=== PATIENT | female | born 1965 | race African-American/Black ===

== ENCOUNTER 2023-01-27 15:27 | Emergency (ER) | payer BC, SELFPAY ==
--- NOTE | ~2023-01-27 | XR_ITS ---
EXAMINATION: XR CHEST CLINICAL INFORMATION: Cough. COMPARISON: None available. TECHNIQUE: 2 views of the chest were obtained. FINDINGS: No significant abnormality is noted involving the heart, lungs, mediastinum, bony thorax or soft tissues. XR/XR chest 2V IMPRESSION: Unremarkable examination.
--- NOTE | 2023-01-27 15:34 | ECG_ITS ---
Test Reason : BRADYCARDIA Blood Pressure : / mmHG Vent. Rate : 054 BPM Atrial Rate : 054 BPM P-R Int : 182 ms QRS Dur : 078 ms QT Int : 454 ms P-R-T Axes : 069 005 026 degrees QTc Int : 430 ms Sinus bradycardia with sinus arrhythmia Otherwise normal ECG No previous ECGs available Referred By: Kathie Levy Electronically Signed By:JITENDRA MOSES
--- NOTE | 2023-01-27 15:44 | ED.GENADULT ---
HPI - General Adult General Chief complaint: Arrhythmia/Palpitations Stated complaint: low heart rate/dizziness Time Seen by Provider: 01/27/23 22:35 Source: patient Mode of arrival: ambulatory History of Present Illness HPI narrative: 57-year-old female with history of elevated BMI, hypertension who presents with onset of dizziness but denies any shortness of breath and describes some left-sided chest pain but is currently asymptomatic. Related Data Allergies Allergy/AdvReac Type Severity Reaction Status Date / Time ammonium alum Allergy Swelling Verified 01/27/23 15:46 [From [place]] cetylpyridinium chloride Allergy Swelling Verified 01/27/23 15:46 [From [place]] docosanol [From [place]] Allergy Swelling Verified 01/27/23 15:46 eucalyptus [From [place]] Allergy Swelling Verified 01/27/23 15:46 lactic acid [From [place]] Allergy Swelling Verified 01/27/23 15:46 menthol [From [place]] Allergy Swelling Verified 01/27/23 15:46 methyl salicylate Allergy Swelling Verified 01/27/23 15:46 [From [place]] octoxynol 9 [From [place]] Allergy Swelling Verified 01/27/23 15:46 soap [From [place]] Allergy Swelling Verified 01/27/23 15:46 sodium lactate Allergy Swelling Verified 01/27/23 15:46 [From [place]] thymol [From [place]] Allergy Swelling Verified 01/27/23 15:46 Review of Systems Review of Systems: Pertinent positives and negatives as stated in HPI [facility] Past Medical History Source: nursing notes reviewed Social History Social History Advance Directives: No Advance Directives Information Provided: Yes Physical Exam ED Vital Signs: Vital Signs - 24 hr 01/27/23 15:46 01/27/23 20:07 01/27/23 22:46 Temperature 97.9 F 97.9 F Pulse Rate 51 64 67 Respiratory Rate 18 20 18 Blood Pressure 188/95 H 212/88 H 180/65 H Pulse Oximetry 100 98 99 Oxygen Delivery Method Room Air Room Air Room Air 01/27/23 23:44 01/27/23 23:45 01/27/23 23:45 Temperature Pulse Rate 62 63 65 Respiratory Rate Blood Pressure 170/78 H 180/64 H 153/86 H Pulse Oximetry Oxygen Delivery Method 01/28/23 01:08 Temperature Pulse Rate 55 Respiratory Rate 13 Blood Pressure 150/82 H Pulse Oximetry 100 Oxygen Delivery Method Room Air BMI result Body Mass Index 40.9 VITAL SIGNS: Reviewed. GENERAL: Elevated BMI, Well developed, well nourished, in no acute distress. HEAD: Normocephalic/atraumatic EYES: PERRLA, EOMI EARS: Ext canals without abnormality, TMs non-bulging and non-erythematous NOSE: Nares patent bilateral OROPHARYNX: no oral lesions noted, posterior pharynx clear and non-erythematous without noted tonsillar enlargement/erythema/exudates NECK: Supple, no adenopathy LUNGS: Normal breath sounds. No adventitious sounds or accessory muscle use. SpO2<99> CARDIOVASCULAR: Regular rate and rhythm without noted murmurs, no JVD or lower extremity edema. ABDOMEN: Soft, non-tender, non-distended with bowel sounds. MUSCULOSKELETAL: No tenderness, deformities, or effusions noted on gross inspection. EXTREMITIES: No cyanosis, clubbing or edema. SKIN: Inspection of the skin reveals no rashes NEUROLOGIC: Alert and oriented x 4. Strength and sensation to light touch were grossly intact x 4, no facial asymmetry, no pronator drift, no ataxic, cranial nerves 2-12 are grossly intact. Course Course Course Narrative: This is a rapid medical exam: Additional HPI, ROS, PE not included below will be deferred to primary provider. Patient is a 57-year-old female with history of HTN, anxiety, GERD presenting to the emergency department with complaint of dizziness, seeing spots, so she went to urgent care. Heart rate found to be low there. Denies chest pain or shortness of breath. Plan: EKG, labs, UA 20:05 Patient's friend up to triage stating that patient is now having chest pain radiating down left arm. Will repeat EKG and add troponin. Patient hypertensive in triage, states she did take her medications today. Denies headache. Medical Decision Making Medical Decision Making MDM Narrative: 57-year-old female with history and clinical presentation, DDX: Hypovolemia, uncontrolled hypertension, bradycardia is secondary to elevated blood pressure as there are no acute changes on EKG, possibility of PE, patient is otherwise nonfocal and orthostatics are positive from sitting to standing position. Reviewed all investigations and hematologic indices do not demonstrate any leukocytosis or left shift, there is no anemia or thrombocytopenia. Coagulation studies are grossly within normal limits and D-dimer <150. Chemistry indices demonstrate serial high sensitivity troponins as undetectable without acute EKG changes and otherwise there is no MAMTA and no electrolyte or liver enzyme derangements. On re-evaluation, patient is resting comfortably and no further elevated blood pressure noted. Patient is entirely asymptomatic at this time and on ambulation she denies any sensation dizziness, headaches, gait instability. My interpretation is that patient may have experienced these symptoms secondary to elevated blood pressure which also was responsible for her bradycardia. Patient was strongly encouraged to purchase an [id number] blood pressure machine, keep a list of her blood pressures and she states she has a follow-up appointment on 02/14. Differential Diagnosis Differential Diagnoses: The differential diagnosis associated with the presentation includes Please see the discussion above Admission/Observation Consideration of admission/observation: Escalation of care including admission/observation considered Please see the discussion above Lab Data MDM Lab Attestation statement: I reviewed the patient's lab results. Please see the discussion above 01/27/23 15:57 01/27/23 15:57 Labs: Lab Results 01/27/23 01/27/23 Range/Units 15:57 23:23 WBC 10.0 (4.8-10.8) X10*3/uL RBC 4.51 (4.20-5.50) X10*6/uL Hgb 13.2 (12.0-16.0) g/dl Hct 38.6 (37.0-47.0) % MCV 85.6 (80.0-98.0) fL MCH 29.3 (27.0-33.0) pg MCHC 34.2 (31.0-35.0) g/dl RDW 14.6 (11.0-16.0) % Plt Count 304 (160-400) X10*3/uL MPV 9.9 (9.4-12.3) fL Immature Gran % (Auto) Cancelled Neut % (Auto) Cancelled Lymph % (Auto) Cancelled [place] % (Auto) Cancelled Eos % (Auto) Cancelled Baso % (Auto) Cancelled Lymph # (Auto) Cancelled [place] # (Auto) Cancelled Eos # (Auto) Cancelled Baso # (Auto) Cancelled Abs Immat Gran (auto) Cancelled Absolute Neuts (auto) Cancelled Absolute Nucleated RBC 0.000 (0.0-0.012) X10*3/uL Nucleated RBC % (auto) 0.0 (0.0-0.2) /100WBC Neutrophils % (Manual) 34 L (45-73) % Band Neutrophils % 0 L (3-5) % Lymphocytes % (Manual) 48 H (20-40) % Atypical Lymphs % (Man) 14 H (0-6) % Monocytes % (Manual) 1 L (2-11) % Eosinophils % (Manual) 1 (0-4) % Basophils % (Manual) 2 (0-2) % Abs Neuts (Manual) 3.4 (2.0-8.3) X10*3/uL Lymphocytes # (Manual) 4.8 (1.2-4.9) X10*3/uL Atyp Lymphs # (Manual) 1.4 x10*3/uL Monocytes # (Manual) 0.1 (0.1-1.2) X10*3/uL Eosinophils # (Manual) 0.1 (0.0-0.4) X10*3/uL Basophils # (Manual) 0.2 (0.0-0.2) X10*3/uL Toxic Granulation PRESENT Dohle Bodies PRESENT Platelet Estimate NORMAL (NORMAL) Plt Morphology Comment NORMAL RBC Morphology NORMAL PT 11.7 (11.1-13.3) SEC INR 1.0 (0.9-1.1) D-Dimer High Sensitivty < 150 NG/ML Sodium 142 (135-145) mmol/L Potassium 3.1 L (3.3-5.1) mmol/L Chloride 106 (96-108) mmol/L Carbon Dioxide 29 (22-29) mmol/L Anion Gap 10 L (12-20) BUN 11 (9-16) mg/dL Creatinine 1.06 (0.5-1.4) mg/dL Estim Creat Clear Calc 69.4 Estimated GFR 54 Random Glucose 80 (60-115) mg/dL Calcium 9.0 (8.4-10.2) mg/dL Total Bilirubin 0.5 (0.0-1.0) mg/dL AST 15 (5-31) U/L ALT 17 (0-31) U/L Alkaline Phosphatase 96 (39-117) U/L Troponin I High Sens < 2.7 < 2.7 (<3.5-17.0) ng/L Total Protein 7.3 (6.5-8.0) g/dL Albumin 3.8 (3.5-5.0) g/dL Independent Interpretation I performed an independent interpretation of an: EKG Interpretation: 1542: Sinus bradycardia, HR -54, no STEMI, MA/QRS/QTC is within normal limits 2012: Sinus bradycardia, HR -56, no STEMI, MA/QRS/QTC is within normal limits Radiology Impression Discussion of test interpretation with radiology: I have reviewed the radiologist's reading. Radiologist Impression: Please see the discussion above External Record Review External record reviewed: Outpatient record and Prior outpatient labs Critical Care Time Critical Care Time Critical Care Time: Yes Total Critical Care Time: 30 Attestation: I personally attest to this time spent taking care of the patient. Discharge Plan Discharge Clinical Impression: Dizziness, Elevated blood pressure reading Patient Disposition: Home, Self-Care Instructions: Lightheadedness (ED) Additional Instructions: 1. Keep your appointment with your primary care doctor. 2. Recommend [id number] blood pressure cuff to keep track of your blood pressures and discussed with your primary care doctor. Return to the ER for any worsening symptoms. Stand Alone Forms: Work/School Release
[2023-01-27 15:46] VITALS: BP 188/95; PULSE 51; RESP 18; TEMP 36.6; O2SAT 100; BMI 40.9
[2023-01-27 16:22] LABS: Hematocrit 38.6 % (37.0-47.0); Hemoglobin 13.2 g/dl (12.0-16.0); Mean Corpuscular HGB Conc 34.2 g/dl (31.0-35.0); Mean Corpuscular Hemoglobin 29.3 pg (27.0-33.0); Mean Corpuscular Volume 85.6 fL (80.0-98.0); Mean Platelet Volume 9.9 fL (9.4-12.3); Platelet Count 304 X10*3/uL (160-400); Red Blood Count 4.51 X10*6/uL (4.20-5.50); Red Cell Distribution Width 14.6 % (11.0-16.0)
[2023-01-27 16:32] LABS: Alanine Aminotransferase 17 U/L (0-31); Albumin Level 3.8 g/dL (3.5-5.0); Alkaline Phosphatase 96 U/L (39-117); Anion Gap 10 (12-20); Aspartate Amino Transferase 15 U/L (5-31); Bilirubin Total 0.5 mg/dL (0.0-1.0); Blood Urea Nitrogen 11 mg/dL (9-16); Carbon Dioxide 29 mmol/L (22-29); Chloride 106 mmol/L (96-108); Creatinine Clr Calc Pharmacy 69.4; Estimated Glomerular Filt Rate 54; Glucose Random 80 mg/dL (60-115); Potassium 3.1 mmol/L (3.3-5.1); Sodium 142 mmol/L (135-145); Total Protein 7.3 g/dL (6.5-8.0)
[2023-01-27 16:51] LABS: Atypical Lymphs Percent Manual 14 % (0-6); Band Neutrophils Percent 0 % (3-5); Basophils Percent Manual 2 % (0-2); Eosinophils Percent Manual 1 % (0-4); Lymphocytes Percent Manual 48 % (20-40); Monocytes Percent Manual 1 % (2-11); Neutrophils Percent Manual 34 % (45-73)
[2023-01-27 16:52] LABS: Dohle Bodies PRESENT; Platelet Estimate NORMAL (NORMAL); Platelet Morphology Comment NORMAL; RBC Morphology NORMAL
[2023-01-27 16:53] LABS: Atypical Lymph Absolute Manual 1.4 x10*3/uL; Basophils Abs Manual 0.2 X10*3/uL (0.0-0.2); Eosinophils Absolute Manual 0.1 X10*3/uL (0.0-0.4); Lymphocytes Absolute Manual 4.8 X10*3/uL (1.2-4.9); Monocytes Absolute Manual 0.1 X10*3/uL (0.1-1.2); Neutrophils Absolute Manual 3.4 X10*3/uL (2.0-8.3); Toxic Granulation PRESENT
[2023-01-27 16:59] LABS: Prothrombin Time 11.7 SEC (11.1-13.3)
--- NOTE | 2023-01-27 20:05 | ECG_ITS ---
Test Reason : CHEST PAIN Blood Pressure : / mmHG Vent. Rate : 056 BPM Atrial Rate : 056 BPM P-R Int : 182 ms QRS Dur : 084 ms QT Int : 458 ms P-R-T Axes : 061 000 032 degrees QTc Int : 441 ms Sinus bradycardia with sinus arrhythmia Otherwise normal ECG When compared with ECG of 27-JAN-2023 15:42, No significant change was found Referred By: Kathie Levy Electronically Signed By:JITENDRA MOSES
[2023-01-27 20:07] VITALS: BP 212/88; PULSE 64; RESP 20; TEMP 36.6; O2SAT 98
[2023-01-27 20:34] LABS: Troponin-I High Sensitivity < 2.7 ng/L (<3.5-17.0)
[2023-01-27 22:46] VITALS: BP 180/65; PULSE 67; RESP 18; O2SAT 99
[2023-01-27 23:44] VITALS: BP 170/78; PULSE 62
[2023-01-27 23:45] VITALS: BP 153/86; BP 180/64; PULSE 63; PULSE 65
[2023-01-27 23:55] LABS: Troponin-I High Sensitivity < 2.7 ng/L (<3.5-17.0)
[2023-01-28 00:04] LABS: D Dimer High Sensitivity < 150 NG/ML
[2023-01-28 01:08] VITALS: BP 150/82; PULSE 55; RESP 13; O2SAT 100
== END 2023-01-28 01:54 | disposition home or self-care (01) ==
PROVIDERS: Registered Nurse Emergency; Emergency Provider Student in an Organized Health Care Education/Training Program
DX: I49.9 Cardiac arrhythmia, unspecified (principal); R42 Dizziness and giddiness; I10 Essential (primary) hypertension; Z79.899 Other long term (current) drug therapy
CPT/HCPCS: 36415; 71046; 80053; 84484; 85007; 85027; 85379; 85610; 93005; 99283; 99285

== ENCOUNTER → 2023-01-27 15:34 | Outpatient (BNV) | payer BC, SELFPAY | PROVIDERS: Emergency Provider Student in an Organized Health Care Education/Training Program; Visit Provider Internal Medicine | DX: R00.1 Bradycardia, unspecified (principal) | CPT/HCPCS: 93010 ==